=== PATIENT | male | born 1995 | race Caucasian/White ===

== ENCOUNTER 2016-11-03 21:45 | Emergency (ER) | payer SELFPAY ==
[~2016-11-03] VITALS: Ht 182.9 cm; Wt 59.0 kg
[2016-11-03] MEDS ORDERED: NKM (21:46)
[2016-11-03 22:20] VITALS: BP_SYST 0; BP_SYST 121; BP_DIAS 0; BP_DIAS 74
--- NOTE | 2016-11-04 01:41 | Emergency Room Report ---
History of Present Illness General Chief Complaint: Substance Abuse Source: Patient Present Illness HPI 21-year-old male reportedly with heroin overdose given Narcan by EMS, resolution of sx Patient left AGAINST MEDICAL ADVICE, before getting fully evaluated by me. He was sitting in stretcher, conversing appropriately, voicing that he wanted to leave witnessed by staff Allergies: Coded Allergies: PENICILLINS (Verified Allergy, Unknown, 11/03/16) Patient History Past Medical History: see triage record Past Surgical History: none Pertinent Family History: none Reviewed Nursing Documentation: PMH: Agreed, PSxH: Agreed Nursing Documentation-PMH Hx Asthma: Yes Review of Systems All Other Systems: negative except mentioned in HPI Physical Exam Vital Signs Date Time Temp Pulse Resp B/P (MAP) Pulse Ox O2 Delivery O2 Flow Rate FiO2 11/03/16 21:45 98.1 120 16 121/74 94 Room Air Sp02 EP Interpretation: reviewed, normal General Appearance: normal inspection, well appearing, no apparent distress, alert, GCS 15, non-toxic Head: normocephalic, atraumatic Eyes: bilateral eye normal inspection, bilateral eye PERRL, bilateral eye EOMI ENT: normal pharynx, normal voice, moist mucus membranes Neck: normal inspection, full range of motion, supple Respiratory: normal inspection, no respiratory distress, no retraction, no wheezing, speaking full sentences, chest symmetrical Cardiovascular #1: normal inspection, regular rate, rhythm, normal capillary refill Cardiovascular #2: 2+ radial (R), 2+ radial (L) Gastrointestinal: normal inspection, non tender, soft Genitourinary: no CVA tenderness Musculoskeletal: normal inspection, back normal, normal range of motion, non- tender Neurologic: normal inspection, alert, oriented x3, responsive, motor strength/ tone normal, sensory intact, normal gait, speech normal Psychiatric: normal inspection, judgement/insight normal, memory normal Skin: normal inspection, normal color, no rash, warm/dry, well hydrated, normal turgor Medical Decision Making Diagnostic Impression: Primary Impression: Substance abuse ER Course 21-year-old male with suspected heroin overdose, given Narcan in the field DDX: Heroin overdose Other toxicology Tylenol and alcohol Plan: Obtain labs, observe ER course: Patient was sitting in stretcher in hallway, voice that he wanted to leave the emergency room. After Narcan given by EMS, patient has been awake alert ambulatory breathing fine. Patient left AMA before being fully evaluated by me Disposition: Patient left AMA Patient is clinically sober, is free from from distracting injury, and has intact judgement and capacity to decide to leave against medical advice. Patient came in for suspected heroin overdose. Patient verbalized understanding of my concern and my need to do labs and observe patient, but patient states "I want to go home I'm fine ". I explained to patient the risks of leaving AMA and patient informed that if they leave, they could get worse, ould become become critically ill, possibly become disabled or . Patient verbalized back to me understanding of these risks but still wants to leave. Please note that this Emergency Department Report was dictated using [employer] technology software, occasionally this can lead to erroneous entry secondary to interpretation by the dictation equipment Last Vital Signs Date Time Temp Pulse Resp B/P (MAP) Pulse Ox O2 Delivery O2 Flow Rate FiO2 11/03/16 22:20 0/0 11/03/16 22:20 98.1 16 94 Room Air 11/03/16 21:45 120 Disposition: AGAINST MEDICAL ADVICE Condition: Stable Kayy Hernández M.D. Nov 04, 2016 01:41
== END 2016-11-03 22:20 | disposition left against medical advice (07) ==
LOC: EDBD 21:45 → EMR 22:18
DX: F11.10 Opioid abuse, uncomplicated (principal); Z88.0 Allergy status to penicillin; J45.909 Unspecified asthma, uncomplicated
CPT/HCPCS: 99282